=== PATIENT | female | born 1990 | race Caucasian/White ===

== ENCOUNTER 2018-11-04 03:23 | Emergency (ER) | END 2018-11-04 04:17 | disposition left against medical advice (07) ==

== ENCOUNTER 2019-02-26 08:10 | Emergency (ER) | payer OTHER ==
[~2019-02-26] VITALS: Ht 162.6 cm; Wt 63.0 kg
[2019-02-26 08:17] VITALS: Ht 162.6 cm; Wt 63.0 kg
[2019-02-26] MEDS ORDERED: SOD CHLORIDE 0.9% 1,000 ML IV STA (08:40)
[2019-02-26] MEDS ORDERED: ONDANSETRON 4 MG INJ IV STA (08:40)
[2019-02-26] MEDS ORDERED: KETOROLAC 30 MG INJ IV STA (08:40)
[2019-02-26] MEDS ORDERED: SOD CHLORIDE 0.9% 100 ML ONE (10:01)
[2019-02-26] MEDS ORDERED: IOHEXOL 300MG/ML 150 ML BTL ONE (10:01)
[2019-02-26] MEDS ORDERED: HYDR-4011 PO (10:49)
[2019-02-26] MEDS ORDERED: NAPR-985 PO (10:49)
[2019-02-26 11:29] VITALS: BP 119/73; PULSE 87; RESP 18
--- NOTE | 2019-02-26 12:53 | ERD ---
ER Documentation Chief Complaint Chief Complaint pt bib family with c/o lower abd pain x 3 days to flank area HPI 29-year-old female presenting with lower abdominal pain times 3 days. Patient states that he has no dysuria and she has no vaginal discharge. She has not have hematuria. Denies fevers. Has not taken medications for symptoms. Describes the pain in the lower pelvic region. Denies medical problems. NKDA. Surgical history rhinoplasty. Social history denies ROS All systems reviewed and are negative except as per history of present illness. Medications Home Meds Active Scripts Naproxen* (Naprosyn*) 500 Mg Tablet, 500 MG PO BID PRN for PAIN AND/OR INFLAMMA TION, #30 TAB Prov:GUMARO CUETO PA-C 02/26/19 Hydrocodone/Acetaminophen ([place] 5-325 Tablet) 1 Each Tablet, 1 TAB PO Q6H PRN for PAIN, #7 TAB Prov:GUMARO CUETO PA-C 02/26/19 Allergies Allergies: Coded Allergies: No Known Allergy (Unverified , 02/26/19) PMhx/Soc Medical and Surgical Hx: pt denies Medical Hx, pt denies Surgical Hx Hx Alcohol Use: No Hx Substance Use: No Hx Tobacco Use: No FmHx Family History: No diabetes, No coronary disease, No other Physical Exam Vitals Vital Signs Date Temp Pulse Resp B/P (MAP) Pulse Ox O2 O2 Flow FiO2 Time Delivery Rate 02/26/19 98.2 87 18 119/73 Room Air 11:29 (88) 02/26/19 97.6 60 18 134/81 99 08:17 (98) Physical Exam GENERAL: The patient is well-appearing, well-nourished, in no acute distress HEENT: Atraumatic. Conjunctivae are pink. Pupils equal, round, and reactive to light. There is no scleral icterus. Tympanic membranes clear bilaterally. Oropharynx clear. NECK: C-spine is soft and supple. There is no meningismus. There is no cervical lymphadenopathy. CHEST: Clear to auscultation bilaterally. There are no rales, wheezes or rhonchi. HEART: Regular rate and rhythm. No murmurs, clicks, rubs or gallops. ABDOMEN: Normal active bowel sounds. No distention. No organomegaly. Tender to palpation in the lower pelvic area with no rebound tenderness. Result Diagram: 02/26/19 0855 02/26/19 0855 Results 24 hrs Laboratory Tests Test 02/26/19 08:52 02/26/19 08:55 POC Beta HCG, Qualitative NEGATIVE White Blood Count 7.7 10^3/ul Red Blood Count 4.48 10^6/ul Hemoglobin 13.2 g/dl Hematocrit 40.1 % Mean Corpuscular Volume 89.5 fl Mean Corpuscular Hemoglobin 29.5 pg Mean Corpuscular Hemoglobin Concent 32.9 g/dl Red Cell Distribution Width 11.9 % Platelet Count 282 10^3/UL Mean Platelet Volume 11.1 fl Immature Granulocytes % 0.300 % Neutrophils % 52.4 % Lymphocytes % 34.9 % Monocytes % 8.7 % Eosinophils % 3.2 % Basophils % 0.5 % Nucleated Red Blood Cells % 0.0 /100WBC Immature Granulocytes # 0.020 10^3/ul Neutrophils # 4.1 10^3/ul Lymphocytes # 2.7 10^3/ul Monocytes # 0.7 10^3/ul Eosinophils # 0.3 10^3/ul Basophils # 0.0 10^3/ul Nucleated Red Blood Cells # 0.0 10^3/ul Urine Color YELLOW Urine Clarity SLIGHTLY CLOUDY Urine pH 6.0 Urine Specific [place] 1.019 Urine Ketones NEGATIVE mg/dL Urine Nitrite NEGATIVE mg/dL Urine Bilirubin NEGATIVE mg/dL Urine Urobilinogen NEGATIVE mg/dL Urine Leukocyte Esterase NEGATIVE [place]/ul Urine Microscopic RBC 1 /HPF Urine Microscopic WBC 1 /HPF Urine Squamous Epithelial Cells FEW /HPF Urine Hemoglobin 1+ mg/dL Urine Glucose NEGATIVE mg/dL Urine Total Protein NEGATIVE mg/dl Sodium Level 142 mmol/L Potassium Level 3.9 mmol/L Chloride Level 105 mmol/L Carbon Dioxide Level 26 mmol/L Anion Gap 11 Blood Urea Nitrogen 18 mg/dl Creatinine 0.66 mg/dl Est Glomerular Filtrat Rate mL/min > 60 mL/min Glucose Level 110 mg/dl Calcium Level 10.0 mg/dl Total Bilirubin 0.3 mg/dl Direct Bilirubin 0.00 mg/dl Indirect Bilirubin 0.3 mg/dl Aspartate Amino Transf (AST/SGOT) 26 IU/L Alanine Aminotransferase (ALT/SGPT) 24 IU/L Alkaline Phosphatase 68 IU/L Total Protein 8.7 g/dl Albumin 4.8 g/dl Globulin 3.90 g/dl Albumin/Globulin Ratio 1.23 Lipase 188 U/L Current Medications Medications Dose Sig/Prema Start Time Status Last (Trade) Ordered Route PRN Stop Time Admin Dose Reason Admin Sodium 1,000 ml @ Q1H STAT 02/26/19 DC 02/26/19 Chloride 1,000 mls/hr IV 08:40 08:58 02/26/19 09:39 Ondansetron 4 mg ONCE STAT 02/26/19 DC HCl (Zofran IV 08:40 Inj) 02/26/19 08:43 Ketorolac 30 mg ONCE STAT 02/26/19 DC Tromethamine IV 08:40 (Toradol) 02/26/19 08:43 IV Flush 10 ml STK-MED 02/26/19 DC 02/26/19 (NS 10 ml) ONCE .ROUTE 10:01 10:18 02/26/19 10:02 Sodium 100 ml @ ud STK-MED 02/26/19 DC 02/26/19 Chloride ONCE .ROUTE 10:01 10:18 02/26/19 10:02 Iohexol 150 ml STK-MED 02/26/19 DC 02/26/19 (Omnipaque ONCE .ROUTE 10:01 10:18 300mg/ ml) 02/26/19 10:02 Procedures/MDM DIAGNOSTIC IMAGING REPORT Patient: VAUGHN HERNANDEZ : 1990 Age: 29 Sex: F MR #: [id number] DOS: 02/26/19 0840 Ordering MD: JOSE GUADALUPE CUETO PA-C Location: [facility] Room/Bed: PROCEDURE: CT Abdomen and Pelvis with IV contrast. CLINICAL INDICATION: Abdominal pain TECHNIQUE: CT of the abdomen and pelvis with 90 cc Omnipaque-300 IV contrast. Coronal and sagittal reformatted images. DICOM images are available. One or more of the following dose reduction techniques were used: automated exposure control, adjustment of the mA and/or kV according to patient size, use of iterative reconstruction technique. CTDI 10.5 mGy, DLP 533 mGy-cm. COMPARISON: Ultrasound, 02/26/2019 FINDINGS: Lower thorax: Normal. Liver: Normal. Biliary: Normal gallbladder. No biliary dilatation. Pancreas: Normal. Spleen: Normal. Adrenal glands: Normal. Genitourinary: No hydronephrosis or urinary calculi. Unremarkable urinary bladder. Vascular: No abdominal aortic aneurysm or dissection. Lymph nodes: No lymphadenopathy. Gastrointestinal: No bowel obstruction. Normal appendix. No diverticulosis, diverticulitis or colitis. Peritoneum: No free air, free fluid or abscess. Reproductive organs: Bilateral ovarian cysts are noted measuring up to 1.9 cm on the right and 2.1 cm on the left. Musculoskeletal: Unremarkable. IMPRESSION: 1. Bilateral ovarian cysts are noted, as described above - please see recent pelvic ultrasound report for further characterization. 2. Otherwise unremarkable CT of the abdomen and pelvis. DIAGNOSTIC IMAGING REPORT Patient: VAUGHN HERNANDEZ : 1990 Age: 29 Sex: F MR #: [id number] DOS: 02/26/19 0840 Ordering MD: JOSE GUADALUPE CUETO PA-C Location: [facility] Room/Bed: PROCEDURE: US Pelvis. CLINICAL INDICATION: pelvic pain TECHNIQUE: Multiple sonographic images of the pelvis were obtained utilizing transabdominal and endovaginal technique. The images were reviewed on a PACS workstation. COMPARISON: None. FINDINGS: The uterus is normal in size with a normal appearance of the myometrium. The uterus measures 8.3 x 3.7 x 2.7 cm. The endometrial stripe is homogeneous in appearance and has the thickness of 5 mm. There is a small amount of fluid within the lower endocervical canal. Normal Doppler flow is identified in both ovaries. The right ovary measures 3.5 x 2.5 cm. There is a 2.3 cm simple cyst in the right ovary. The left ovary measures 4.2 x 1.7 x 3.0 cm. There is a 2.2 cm hemorrhagic cyst in the left ovary. There is a 1.3 cm hemorrhagic cyst in the left ovary. Trace free fluid is present within the pelvis. RPTAT: AA IMPRESSION: Enlarged left ovary with hemorrhagic cysts. Small amount of fluid within the lower endocervical canal. MDM: 29-year-old female presenting with pelvic pain. Patient has ovarian cyst. I have low suspicion for PID she is not complaining of vaginal discharge. Patient's vitals are stable. I have low suspicion for other acute abdominal emergencies. I have low suspicion for nephrolithiasis, septic stone or urinary tract infection. Exam is non-concerning urinalysis and blood work are within normal limits. Patient's imaging is within normal limits. Patient is discharged with strict ER precautions and told to follow-up with primary care within 1-2 days for close evaluation. Patient is told if symptoms change or worsen to return immediately to the ER. All questions answered at discharge Departure Diagnosis: Primary Impression: Ovarian cyst Condition: Stable Patient Instructions: Ovarian Cyst Referrals: [facility] YOU HAVE RECEIVED A MEDICAL SCREENING EXAM AND THE RESULTS INDICATE THAT YOU DO NOT HAVE A CONDITION THAT REQUIRES URGENT TREATMENT IN THE EMERGENCY DEPARTMENT. FURTHER EVALUATION AND TREATMENT OF YOUR CONDITION CAN WAIT UNTIL YOU ARE SEEN IN YOUR DOCTORS OFFICE WITHIN THE NEXT 1-2 DAYS. IT IS YOUR RESPONSIBILITY TO MAKE AN APPOINTMENT FOR FOLOW-UP CARE. IF YOU HAVE A PRIMARY DOCTOR --you should call your primary doctor and schedule an appointment IF YOU DO NOT HAVE A PRIMARY DOCTOR YOU CAN CALL OUR PHYSICIAN REFERRAL HOTLINE AT IF YOU CAN NOT AFFORD TO SEE A PHYSICIAN YOU CAN CHOSE FROM THE FOLLOWING [facility] [address] [facility] [address] [facility] [address] [facility] [address] [facility] [address] [facility]. [facility]. [address] Additional Instructions: FOLLOW UP WITH YOUR PRIMARY CARE PHYSICIAN TOMORROW.Return to this facility if you are not improving as expected. GUMARO CUETO PA-C Feb 26, 2019 12:53
== END 2019-02-26 11:31 | disposition home or self-care (01) ==
LOC: FTE 08:10
DX: N83.202 Unspecified ovarian cyst, left side (principal); R10.2 Pelvic and perineal pain
CPT/HCPCS: 36415; 74177; 76830; 76856; 80053; 81001; 81025; 83690; 85025; 96360; J7030; Q9967; Z7502; Z7610